=== PATIENT | male | born 1990 | race American Indian/Alaskan Native ===

== ENCOUNTER 2016-04-23 07:58 | Emergency (ER) | payer SELFPAY ==
[2016-04-23 08:34] VITALS: BP 112/78
[2016-04-23] MEDS ORDERED: ROCEPHIN IM ONE (11:25)
[2016-04-23] MEDS ORDERED: XYLOCAINE 1% MPF 5 mL INFILTRATI ONE (11:25)
[2016-04-23] MEDS ORDERED: ZITHROMAX PO ONE (11:26)
--- NOTE | 2016-04-23 11:31 | Emergency Department Report ---
HPI - General Chief Complaint: Urogenital-Male Time Seen by Provider: 04/23/16 11:24 - HPI HPI: This is a 25-year-old -Irish male presents the emergency department in hopes of being checked for gonorrhea and chlamydia. The patient says that his "baby mama", one of his sexual partners, recently was diagnosed with positive chlamydia. Patient himself denies any abdominal pain, penile discharge , dysuria or any symptoms whatsoever. He denies any history of STDs. He does not have a primary care doctor. He denies any past medical history. ED Past Medical Hx - Past Medical History Previous Medical History?: No - Surgical History Past Surgical History?: Yes Additional Surgical History: Nasal surgery - Social History Smoking Status: Current Every Day Smoker Substance Use Type: Alcohol, Marijuana, Other - Medications Home Medications: Home Medications Medication Instructions Recorded Confirmed Last Taken Type ZyrTEC PRN 04/23/16 Unknown History ED Review of Systems ROS: Stated complaint: STD Other details as noted in HPI Comment: All other systems reviewed and negative Constitutional: denies: chills, fever Eyes: denies: eye pain, eye discharge, vision change ENT: denies: ear pain, throat pain Respiratory: denies: cough, shortness of breath, wheezing Cardiovascular: denies: chest pain, palpitations Gastrointestinal: denies: abdominal pain, nausea, diarrhea Genitourinary: denies: urgency, dysuria Musculoskeletal: denies: back pain, joint swelling, arthralgia Skin: denies: rash, lesions Neurological: denies: headache, weakness, paresthesias Physical Exam - Physical Exam Vital Signs: Vital Signs 04/23/16 08:24 Temperature 97.9 F Pulse Rate 68 Respiratory 18 Rate Blood Pressure 112/78 O2 Sat by Pulse 100 Oximetry Physical Exam: GENERAL: The patient is well-developed well-nourished. HEENT: Normocephalic. Atraumatic. Extraocular motions are intact. Patient has moist mucous membranes. Pupils equal reactive to light bilaterally. NECK: Supple. Trachea is midline. CHEST/LUNGS: Clear to auscultation. There is no respiratory distress noted. HEART/CARDIOVASCULAR: Regular. There is no tachycardia. There is no gallop rub or murmur. ABDOMEN: Abdomen is soft, nontender. Patient has normal bowel sounds. There is no abdominal distention. SKIN: Warm and dry. NEURO: The patient is awake, alert, and oriented. The patient is cooperative. The patient has no focal neurologic deficits. The patient has normal speech. MUSCULOSKELETAL: There is no tenderness or deformity. There is no limitation range of motion. There is no evidence of acute injury. : Deferred ED Course Vital Signs 04/23/16 08:24 Temperature 97.9 F Pulse Rate 68 Respiratory 18 Rate Blood Pressure 112/78 O2 Sat by Pulse 100 Oximetry ED Medical Decision Making - Medical Decision Making Patient presents with concern for exposure to chlamydia. He is adamant that he would like to be checked but also agrees with the plan for treatment due to exposure. Patient received Rocephin and azithromycin. The G&C culture was sent. Vital signs stable throughout his ED course. Critical Care Time: No Critical care attestation.: If time is entered above; I have spent that time in minutes in the direct care of this critically ill patient, excluding procedure time. ED Disposition Clinical Impression: Exposure to STD Disposition: DISCHARGED TO HOME OR SELFCARE Is pt being admited?: No Condition: Stable Instructions: Sexually Transmitted Diseases (ED), Safe Sex (ED) Additional Instructions: Please follow-up with a primary care doctor. Return to the emergency department with any acute distress. You should avoid any sexual contact for at least 1 week after getting the treatment today. Referrals: PRIMARY CARE [Primary Care Provider] - 3-5 Days [facility] [Outside] - 3-5 Days Time of Disposition: 12:24
== END 2016-04-23 12:24 | disposition home or self-care (01) ==
LOC: ED 07:58
DX: Z20.2 Contact with and (suspected) exposure to infections with a predominantly sexual mode of transmission (principal); F17.200 Nicotine dependence, unspecified, uncomplicated; F12.90 Cannabis use, unspecified, uncomplicated
CPT/HCPCS: 87591; 96372; 99283; J0696

== ENCOUNTER 2021-07-05 10:04 | Emergency (ER) | payer SELFPAY ==
[2021-07-05 10:53] VITALS: BP 119/78
[2021-07-05 12:19] LABS: Bilirubin,Urine NEG (Negative); Blood,Urine SM (Negative); Color,Urine Yellow (Yellow); Mucus,Urine 1+ /HPF; Protein,Urine <15 mg/dL mg/dL (Negative); Urobilinogen,Urine < 2.0 mg/dL (<2.0)
[2021-07-05 12:20] LABS: WBC,Urine > 182.0 /HPF (0.0-6.0)
[2021-07-05] MEDS ORDERED: LIDOCAINE-MPF (1%) 10 MG/1 ML VIAL 5 ML INFILTRATI ONE (14:55)
[2021-07-05] MEDS ORDERED: AZITHROMYCIN 250 MG TAB PO ONE (14:55)
--- NOTE | 2021-07-05 16:38 | Emergency Department Report ---
ED Male HPI - General Chief complaint: Urogenital-Male Stated complaint: STD TESTING/GENTIALS SWOLLEN Time Seen by Provider: 07/05/21 14:51 Source: patient Mode of arrival: Ambulatory Limitations: No Limitations - History of Present Illness Initial comments: This is a 31-year-old male nontoxic, well nourished in appearance, no acute signs of distress presents to the ED with c/o of penile discharge, dysuria, and testicular pain with swelling x several days. Patient did state that he had a sexual intercourse shortly prior to her symptoms. Patient denies any penile ulcers or lesions. Patient denies any nausea, vomiting, chest pain, shortness of breathe, fever, chills, headache, back pain, numbness, tingling, stiff neck. Patient denies any other urinary symptoms. Patient stated allergies to pollen. MD Complaint: testicle pain, testicle swelling -: days(s) Location: penis Radiation: none Severity: mild Severity scale (0 -10): 3 Quality: burning Consistency: constant Improves with: none Worsens with: urination discharge, swelling, dysuria. denies: mass, rash, urinary retention, blood in urine, fever, nausea/vomiting, incontinence - Related Data Home Medications Medication Instructions Recorded Confirmed Last Taken ZyrTEC PRN 04/23/16 Unknown Previous Rx's Medication Instructions Recorded Last Taken Type Doxycycline Hyclate [Doxycycline 100 mg PO Q12HR #14 tab 07/05/21 Unknown Rx Hyclate TAB] Allergies Allergy/AdvReac Type Severity Reaction Status Date / Time pollen extracts Allergy Itching Verified 04/23/16 08:21 ED Review of Systems ROS: Stated complaint: STD TESTING/GENTIALS SWOLLEN Other details as noted in HPI Constitutional: denies: chills, fever Eyes: denies: eye pain, eye discharge, vision change ENT: denies: ear pain, throat pain Respiratory: denies: cough, shortness of breath, wheezing Cardiovascular: denies: chest pain, palpitations Endocrine: no symptoms reported Gastrointestinal: denies: abdominal pain, nausea, diarrhea Genitourinary: dysuria, discharge, testicular pain. denies: urgency, frequency, hematuria, testicular mass Musculoskeletal: denies: back pain, joint swelling, arthralgia Skin: denies: rash, lesions Neurological: denies: headache, weakness, paresthesias Psychiatric: denies: anxiety, depression Hematological/Lymphatic: denies: easy bleeding, easy bruising ED Past Medical Hx - Past Medical History Previous Medical History?: Yes Hx HIV: No - Surgical History Past Surgical History?: Yes Additional Surgical History: Nasal surgery - Social History Smoking Status: Never Smoker - Medications Home Medications: Home Medications Medication Instructions Recorded Confirmed Last Taken Type ZyrTEC PRN 04/23/16 Unknown History Doxycycline Hyclate [Doxycycline 100 mg PO Q12HR #14 tab 07/05/21 Unknown Rx Hyclate TAB] ED Physical Exam - General Limitations: No Limitations General appearance: alert, in no apparent distress - Head Head exam: Present: atraumatic, normocephalic - Eye Eye exam: Present: normal appearance - Neck Neck exam: Present: normal inspection, full ROM. Absent: lymphadenopathy - Respiratory Respiratory exam: Absent: respiratory distress - Cardiovascular Cardiovascular Exam: Present: regular rate - GI/Abdominal GI/Abdominal exam: Present: soft, normal bowel sounds. Absent: distended, tenderness, guarding, rebound, rigid, diminished bowel sounds - Rectal Rectal exam: Present: deferred - exam: Present: urethral discharge. Absent: testicular tenderness, scrotal swelling, vertical testicular lie, circumcision External exam: Present: normal external exam. Absent: erythema, swelling, lesions, lacerations, ecchymosis, bleeding - Extremities Exam Extremities exam: Present: full ROM - Back Exam Back exam: Present: normal inspection, full ROM. Absent: tenderness, CVA tenderness (R), CVA tenderness (L), muscle spasm, paraspinal tenderness, vertebral tenderness, rash noted - Neurological Exam Neurological exam: Present: alert, oriented X3, normal gait - Psychiatric Psychiatric exam: Present: normal affect, normal mood - Skin Skin exam: Present: warm, dry, intact, normal color. Absent: rash ED Course Vital Signs 07/05/21 10:48 Temperature 98.9 F Pulse Rate 102 H Respiratory 14 Rate Blood Pressure 119/78 O2 Sat by Pulse 97 Oximetry - Reevaluation(s) Reevaluation #1: 07/05/21 16:38 Patient is speaking in full sentences with no signs of distress noted. ED Medical Decision Making - Lab Data Lab Results 07/05/21 Range/Units Unknown Urine Color Yellow (Yellow) Urine Turbidity Cloudy (Clear) Urine pH 6.0 (5.0-7.0) Ur Specific [place] 1.013 (1.003-1.030) Urine Protein <15 mg/dl (Negative) mg/dL Urine Glucose (UA) Neg (Negative) mg/dL Urine Ketones 20 (Negative) mg/dL Urine Blood Sm (Negative) Urine Nitrite Neg (Negative) Urine Bilirubin Neg (Negative) Urine Urobilinogen < 2.0 (<2.0) mg/dL Ur Leukocyte Esterase Lg (Negative) Urine WBC (Auto) > 182.0 H (0.0-6.0) /HPF Urine RBC (Auto) 13.0 (0.0-6.0) /HPF U Epithel Cells (Auto) 1.0 (0-13.0) /HPF Urine WBC Clumps 3+ /HPF Urine Mucus 1+ /HPF - Radiology Data ULTRASOUND SCROTUM INDICATION / CLINICAL INFORMATION: testicular pain. COMPARISON: None available. FINDINGS -- RIGHT TESTIS: Size = 4.2 x 1.8 x 2.9 cm. - Appearance: No significant abnormality. - Cyst or Mass: None. - Color Doppler Flow: No significant abnormality. EPIDIDYMIS: No significant abnormality. HYDROCELE: Trace. VARICOCELE: None demonstrated. FINDINGS -- LEFT TESTIS: Size = 4.0 x 1.7 x 2.6 cm. - Appearance: No significant abnormality. - Cyst or Mass: None. - Color Doppler Flow: No significant abnormality. EPIDIDYMIS: No significant abnormality. HYDROCELE: Small VARICOCELE: None demon strated. ADDITIONAL FINDINGS: None. IMPRESSION: Small left and trace right hydroceles, nonspecific. No other significant abnormality. No evidence of torsion. Signer Name: Castillo Churchill MD Signed: 07/05/2021 4:03 PM Workstation Name: [id number] - Medical Decision Making This is a 31-year-old male that presents with UTI, possible STD and hydrocele. Patient is stable was examined by me. There is no abdominal tenderness. No pelvic pain. UA obtained. Wet prep obtained. Gonorrhea chlamydia UA sent to lab and pending. Patient was instructed to return in 3-5 days for GC results. Patient wanted empirical treatment so patient received 2 g Rocephin and 1 g of azithromycin by mouth. Patient be discharged with doxycycline. Patient is notified of the ultrasound report with no questions noted by the patient. Patient was instructed to Follow-up with a primary care doctor in 3-5 days or if symptoms worsen and continue return to emergency room as soon as possible. At time of discharge, the patient does not seem toxic or ill in appearance. No acute signs of distress noted. Patient agrees to discharge treatment plan of care. No further questions noted by the patient. Critical care attestation.: If time is entered above; I have spent that time in minutes in the direct care of this critically ill patient, excluding procedure time. ED Disposition Clinical Impression: Possible exposure to STD UTI (urinary tract infection) Qualifiers: Urinary tract infection type: acute cystitis Hematuria presence: without hematuria Qualified Code(s): N30.00 - Acute cystitis without hematuria Hydrocele Qualifiers: Hydrocele type: unspecified Qualified Code(s): N43.3 - Hydrocele, unspecified Disposition: 01 HOME / SELF CARE / HOMELESS Is pt being admited?: No Does the pt Need Aspirin: No Condition: Stable Instructions: Hydrocele, Adult, Urinary Tract Infection, Adult, Safe Sex Additional Instructions: Follow-up with a primary care doctor in 3-5 days or if symptoms worsen and continue return to emergency room as soon as possible. Prescriptions: Doxycycline Hyclate [Doxycycline Hyclate TAB] 100 mg PO Q12HR #14 tab Referrals: PRIMARY MD JCARLOS [Referring] - 3-5 Days MIRLANDE RIVERS MD [Staff Physician] - 3-5 Days Time of Disposition: 17:10
--- NOTE | 2021-07-05 17:07 | Ultrasound Report ---
. ULTRASOUND SCROTUM INDICATION / CLINICAL INFORMATION: testicular pain. COMPARISON: None available. FINDINGS -- RIGHT TESTIS: Size = 4.2 x 1.8 x 2.9 cm. - Appearance: No significant abnormality. - Cyst or Mass: None. - Color Doppler Flow: No significant abnormality. EPIDIDYMIS: No significant abnormality. HYDROCELE: Trace. VARICOCELE: None demonstrated. FINDINGS -- LEFT TESTIS: Size = 4.0 x 1.7 x 2.6 cm. - Appearance: No significant abnormality. - Cyst or Mass: None. - Color Doppler Flow: No significant abnormality. EPIDIDYMIS: No significant abnormality. HYDROCELE: Small VARICOCELE: None demonstrated. ADDITIONAL FINDINGS: None. IMPRESSION: Small left and trace right hydroceles, nonspecific. No other significant abnormality. No evidence of torsion. Signer Name: Castillo Churchill MD Signed: 07/05/2021 5:03 PM Workstation Name: [id number]
== END 2021-07-05 17:10 | disposition home or self-care (01) ==
LOC: ED 10:04
DX: N39.0 Urinary tract infection, site not specified (principal); N43.3 Hydrocele, unspecified; Z20.2 Contact with and (suspected) exposure to infections with a predominantly sexual mode of transmission; Z91.09 Other allergy status, other than to drugs and biological substances
CPT/HCPCS: 81001; 93975; 96372; 99284; J0696; J3490